=== PATIENT | male | born 1945 | race Caucasian/White ===

== ENCOUNTER 2021-04-25 12:45 | Emergency (ER) | payer BC, OTHER ==
[~2021-04-25] VITALS: Ht 172.7 cm; Wt 98.0 kg
[~2021-04-25 12:45] MED LIST: ALLO300T2 PO; AMLO2.5T2 PO; ASPI-612 PO; ATOR20TA66 PO; FLO0.4C PO; LISI20TA28 PO; METF-436 PO; MULT-436 PO; NADO20TA PO; fish oil; tamsulosin capsule PO; vit b-12; vit d3
[2021-04-25 13:06] VITALS: BP 151/82
[2021-04-25 13:38] LABS: BASOPHILS # (AUTO) 0.1 X10'3 (0-0.2); BASOPHILS % (AUTO) 0.6 % (0-1); EOSINOPHILS # (AUTO) 0.3 X10'3 (0-0.9); EOSINOPHILS % (AUTO) 3.1 % (0-6); HEMATOCRIT 34.8 % (42.0-52.0); HEMOGLOBIN 12.2 g/dl (14.0-17.9); LYMPHOCYTES # (AUTO) 1.1 X10'3 (1.1-4.8); LYMPHOCYTES % (AUTO) 9.9 % (21-51); MEAN CORPUSCULAR HEMOGLOBIN 31.4 PG (27.0-31.0); MEAN CORPUSCULAR HGB CONC 34.9 g/dL (33.0-36.5); MEAN CORPUSCULAR VOLUME 89.9 FL (78-98); MEAN PLATELET VOLUME 7.7 FL (7.4-10.4); MONOCYTES # (AUTO) 0.8 X10'3 (0-0.9); MONOCYTES % (AUTO) 7.4 % (2-12); NEUTROPHILS # (AUTO) 8.5 X10'3 (1.8-7.7); PLATELET COUNT 333 X10'3 (140-440); RED BLOOD COUNT 3.88 X10'6 (4.70-6.10); RED CELL DISTRIBUTION WIDTH 14.2 % (11.5-14.5); WHITE BLOOD COUNT 10.7 X10'3 (4.5-11.0)
[2021-04-25 13:50] LABS: ALANINE AMINOTRANSFERASE 63 U/L (12-78); ALBUMIN 3.2 G/DL (3.4-5.0); ALBUMIN/GLOBULIN RATIO 0.7 (1.1-1.5); ALKALINE PHOSPHATASE 165 IU/L (46-116); ANION GAP 9 (8-16); ASPARTATE AMINO TRANSFERASE 28 U/L (10-37); BILIRUBIN,TOTAL 0.6 MG/DL (0.1-1.0); BLOOD UREA NITROGEN 37 MG/DL (7-18); CALCIUM 9.1 MG/DL (8.5-10.1); CHLORIDE 100 MMOL/L (99-107); CREATININE 1.54 MG/DL (0.60-1.10); GLUCOSE 204 MG/DL (70-104); POTASSIUM 4.8 MMOL/L (3.5-5.1); SODIUM 136 MMOL/L (135-145); TOTAL CARBON DIOXIDE 26.8 MMOL/L (24-32); TOTAL PROTEIN 7.5 G/DL (6.4-8.2); eGFR 44 ML/MIN
[2021-04-25] MEDS ORDERED: CEPH250T PO (14:25)
== END 2021-04-25 14:39 | disposition home or self-care (01) ==
LOC: ER 12:46
DX: L03.115 Cellulitis of right lower limb (principal); M25.561 Pain in right knee; M79.661 Pain in right lower leg; Z98.890 Other specified postprocedural states; Z88.0 Allergy status to penicillin; Z88.5 Allergy status to narcotic agent; Z79.82 Long term (current) use of aspirin; Z79.2 Long term (current) use of antibiotics; Z79.899 Other long term (current) drug therapy
CPT/HCPCS: 36415; 80053; 85025; 93971; 99284

== ENCOUNTER 2023-01-07 13:00 | Day surgery (SDC) | payer BC ==
[~2023-01-07] VITALS: Ht 175.3 cm; Wt 97.3 kg
[2023-01-07] VITALS (7 sets, daily range): BP systolic 122–169; BP diastolic 66–90; PULSE 57–65; RESP 16; TEMP 98; O2SAT 93–97
[~2023-01-07 13:00] MED LIST changes: -FLO0.4C PO; -NADO20TA PO; +NADO20TA36 PO
[2023-01-07] MEDS ORDERED: diphenhydrAMINE 25mg capsule PO PRN (13:25)
[2023-01-07] MEDS ORDERED: normal saline 1,000 ML IV SCH (13:25)
[2023-01-07] MEDS ORDERED: LORazepam 0.5 MG tablet PO PRN (13:25)
[2023-01-07] MEDS ORDERED: iohexol 350MG/ML 100ml bottle IV ONE (13:36)
[2023-01-07] MEDS ORDERED: heparin 1,000unit/ml 10ml vial 10 ML ONE (13:36)
[2023-01-07] MEDS ORDERED: midazolam 1 mg/ML 2ml injection ONE (13:36)
[2023-01-07] MEDS ORDERED: fentaNYL/PF 50MCG/1 ML 2ML syringe ONE (13:36)
[2023-01-07] MEDS ORDERED: verapamil 2.5 mg/ml inj IV ONE (13:36)
[2023-01-07] MEDS ORDERED: LIDOcaine 1% (10mg/ml) 2ml vial ONE ×2 (13:36→14:41)
[2023-01-07 13:38] LABS: BASOPHILS # (AUTO) 0.1 X10'3 (0-0.2); BASOPHILS % (AUTO) 0.8 % (0-1); EOSINOPHILS # (AUTO) 0.4 X10'3 (0-0.9); EOSINOPHILS % (AUTO) 4.5 % (0-6); HEMATOCRIT 43.1 % (42.0-52.0); HEMOGLOBIN 14.9 g/dl (14.0-17.9); LYMPHOCYTES # (AUTO) 1.2 X10'3 (1.1-4.8); LYMPHOCYTES % (AUTO) 14.6 % (21-51); MEAN CORPUSCULAR HEMOGLOBIN 31.5 PG (27.0-31.0); MEAN CORPUSCULAR HGB CONC 34.6 g/dL (33.0-36.5); MEAN CORPUSCULAR VOLUME 91.2 FL (78-98); MEAN PLATELET VOLUME 7.8 FL (7.4-10.4); MONOCYTES # (AUTO) 0.5 X10'3 (0-0.9); MONOCYTES % (AUTO) 6.4 % (2-12); NEUTROPHILS # (AUTO) 5.8 X10'3 (1.8-7.7); NEUTROPHILS % (AUTO) 73.7 % (42-75); PLATELET COUNT 223 X10'3 (140-440); RED BLOOD COUNT 4.72 X10'6 (4.70-6.10); RED CELL DISTRIBUTION WIDTH 14.6 % (11.5-14.5); WHITE BLOOD COUNT 7.9 X10'3 (4.5-11.0)
[2023-01-07] MEDS ORDERED: nitroGLYCERIN 500mcg/5mL D5W 5 ML IV ONE (13:38)
[2023-01-07] MEDS ORDERED: DAPA10TA PO (13:45)
[2023-01-07] MEDS ORDERED: NADO20TA4 PO (13:46)
[2023-01-07] MEDS ORDERED: ISOS30TA84 PO (13:47)
[2023-01-07 13:51] LABS: PROTHROMBIN TIME 10.3 SECONDS (9.0-12.0)
[2023-01-07 13:56] LABS: ALBUMIN 3.8 G/DL (3.4-5.0); ANION GAP 7 (8-16); BLOOD UREA NITROGEN 28 MG/DL (7-18); BUN/CREATININE RATIO 16.9 (10.0-20.0); CALCIUM 9.1 MG/DL (8.5-10.1); CHLORIDE 103 MMOL/L (99-107); CREATININE 1.66 MG/DL (0.60-1.10); GLUCOSE 145 MG/DL (70-104); MAGNESIUM 2.2 MG/DL (1.5-2.4); SODIUM 137 MMOL/L (135-145); TOTAL CARBON DIOXIDE 27.4 MMOL/L (24-32); eCRCL 36 ML/MIN; eGFR 40 ML/MIN
[2023-01-07] MEDS ORDERED: LIDOcaine 1% (10mg/ml)w/preservative inj. 20ml MDV ONE (14:44)
[2023-01-07] MEDS ORDERED: ondansetron/PF 4mg/2ml inj IV PRN (15:55)
[2023-01-07] MEDS ORDERED: HYDROcodone/acetaminophen 5mg/325mg tablet PO PRN (15:55)
[2023-01-07] MEDS ORDERED: HYDROcodone/acetaminophen 10/325mg tab PO PRN (15:55)
[2023-01-07] MEDS ORDERED: proCHLORperazine 10 MG/2 ml inj IV PRN (15:55)
== END 2023-01-07 17:53 | disposition home or self-care (01) ==
LOC: SSTAY O 13:00
PROVIDERS: ATTEND Student in an Organized Health Care Education/Training Program
DX: I25.10 Atherosclerotic heart disease of native coronary artery without angina pectoris (principal); I10 Essential (primary) hypertension; E78.00 Pure hypercholesterolemia, unspecified; G47.33 Obstructive sleep apnea (adult) (pediatric); M10.9 Gout, unspecified; Z86.73 Personal history of transient ischemic attack (TIA), and cerebral infarction without residual deficits; Z79.2 Long term (current) use of antibiotics; Z79.82 Long term (current) use of aspirin; Z79.899 Other long term (current) drug therapy; Z95.810 Presence of automatic (implantable) cardiac defibrillator; Z88.0 Allergy status to penicillin
CPT/HCPCS: 36415; 80048; 82948; 83735; 85025; 85610; 93005; 93454; 99152; 99153; J1644; J2250; J3010; J3490; J7030; Q9967; A6258; A6402; C1894